=== PATIENT | male | born 1955 | race Caucasian/White ===

== ENCOUNTER 2016-04-09 21:00 | Inpatient (IN) | payer BC ==
[~2016-04-09] VITALS: Ht 170.2 cm; Wt 93.6 kg
[~2016-04-09 21:00] MED LIST: ASPI1TAB69 PO; ATOR40TA16 PO; CLOP75TA PO; COMMODE 3-IN-11 MIS; FERR325T PO; FURO20TA PO; GETGO ROLLING W1 MI1; HOSP BED1; LISI10TA3 PO; METF500 PO; METO25TA3 PO; PANT40TA3 PO; POTA20TA5 PO; QUADMIS; SENN1TAB PO; TAMS5CAP PO; ULTR50TA5 PO; WHEEMIS3; ZOFR4TAB PO
[2016-04-09 21:13] VITALS: BP 133/87; PULSE 100; PULSE 18; RESP 18; TEMP 99.4; O2SAT 96
[2016-04-09] MEDS ORDERED: VANCOMYCIN INJ 1,400 MG in SODIUM CHLORID 0.9% 500 ML INJ 500 ML IV SCH (22:00)
[2016-04-09 22:20] VITALS: BP 159/82; PULSE 100; RESP 20; O2SAT 97
[2016-04-09 22:36] LABS: AUTOMATED NEUTROPHIL # 7.9 TH/MM3 (1.8-7.7); BASOPHIL # 0.1 TH/MM3 (0-0.2); BASOPHIL % 0.6 % (0.0-2.0); EOSINOPHIL # 0.1 TH/MM3 (0-0.4); EOSINOPHIL % 1.2 % (0.0-4.0); HEMATOCRIT 27.1 % (39.0-51.0); HEMO FLAGS DIFF FINAL; LYMPH % 5.1 % (9.0-44.0); LYMPHOCYTE # 0.5 TH/MM3 (1.0-4.8); MEAN CELL VOLUME 79.1 FL (80.0-100.0); MEAN CORPUSCULAR HEMOGLOBIN 25.4 PG (27.0-34.0); NEUT % 80.1 % (16.0-70.0); PLATELET COUNT 340 TH/MM3 (150-450); RED BLOOD COUNT 3.43 MIL/MM3 (4.50-5.90); WHITE BLOOD COUNT 9.9 TH/MM3 (4.0-11.0)
--- NOTE | 2016-04-09 22:39 | PD ---
HPI Chief Complaint: Skin Problem Time Seen by Provider: 21:38 Travel History International Travel<30 days: No Contact w/Intl Traveler<30days: No Traveled to known affect area: No History of Present Illness HPI Patient is a 60 year old male who presents to ER with c/o of fever/chills and infection to his chest wall incision. Patient reports that he had a CABG 2 as well as an aortic replacement at [facility] in [place] on March 09, 2017. Patient reports that after his cardiac procedures, he suffered a watershed infarct. Reports that ultimately, he was cleared for discharge to acute inpatient rehab and did well. He was discharged on April 06, 2015. Patient reports that since yesterday, he has been feeling weaker than normal. Patient reports that he has been having low-grade fever since yesterday, reports a two-day here temperature of 102.3. Patient did take 1gram of acetaminophen prior to coming to the ER. Reports that he noticed a yellow to greenish thick discharge from his upper chest wall incision. Reports that he did not notice this drainage yesterday. Reports that today, he feels more weak and tired and "I just don't feel good." Patient denies chest pain/sob at this time. No other c/o. PFSH Past Medical History Arthritis: No Asthma: No Anxiety: No Depression: No Heart Rhythm Problems: No Cancer: No Cardiovascular Problems: Yes High Cholesterol: Yes Chemotherapy: No Chest Pain: No Congestive Heart Failure: Yes COPD: No Cerebrovascular Accident: Yes Diabetes: Yes Patient Takes Glucophage: Yes Endocrine: Yes Gastrointestinal Disorders: No GERD: No Glaucoma: No Genitourinary: No Headaches: No Hepatitis: No Hiatal Hernia: No Heparin Induced Thrombocytopen: No Hypertension: Yes Immune Disorder: No Implanted Vascular Access Dvce: No Kidney Stones: No Musculoskeletal: Yes Neurologic: Yes (neuropathy feet) Psychiatric: No Reproductive: No Respiratory: No Integumentary: No Migraines: No Radiation Therapy: No Renal Failure: No Seizures: No Sickle Cell Disease: No Sleep Apnea: No Thyroid Disease: No Ulcer: No Past Surgical History Abdominal Surgery: Yes (colon resection x2) AICD: No Arteriovenous Shunt: No Body Medical Devices: Downing catheter 14Fr in place Cardiac Surgery: Yes (s/p CABG x 2 & ascending aortic root graft/replacement) Ear Surgery: No Endocrine Surgery: No Eye Surgery: No Genitourinary Surgery: No Gynecologic Surgery: No Insulin Pump: No Joint Replacement: No Neurologic Surgery: No Oral Surgery: Yes (root canal) Pacemaker: No Thoracic Surgery: No Other Surgery: Yes (cardiac) Social History Alcohol Use: Yes (EVERY OTHER DAY PER PT) Tobacco Use: No Substance Use: No Allergies-Medications (Allergen,Severity, Reaction): Coded Allergies: No Known Allergies (Unverified , 11/15/15) Reported Meds & Prescriptions Reported Meds & Active Scripts Active Ultram (Tramadol HCl) 50 Mg Tab 50 Mg PO Q8HR PRN Glucophage (Metformin HCl) 500 Mg Tab 500 Mg PO TIDPC Lisinopril 10 Mg Tab 10 Mg PO DAILY Furosemide 20 Mg Tab 20 Mg PO DAILY Potassium Chloride Microencaps 20 Meq Tab 10 Meq PO DAILY Senna Plus 8.6-50 mg (Sennosides-Docusate Sodium) 1 Tab Tab 1 Tab PO BID Flomax (Tamsulosin HCl) 0.4 Mg Cap 0.8 Mg PO HS Pantoprazole (Pantoprazole Sodium) 40 Mg Tab 40 Mg PO DAILY Metoprolol Tartrate 25 Mg Tab 25 Mg PO BID Ferrous Sulfate 325 Mg Tab 325 Mg PO BID Clopidogrel (Clopidogrel Bisulfate) 75 Mg Tab 75 Mg PO DAILY Atorvastatin (Atorvastatin Calcium) 40 Mg Tab 40 Mg PO HS Aspirin 81 Mg Tabdr 81 Mg PO DAILY Walker Rolling/GetGo (Device) 1 Mis Mis 1 Ea .ROUTE DIRECTED Commode 3-in-1 (Device) 1 Mis Mis 1 Ea .ROUTE DIRECTED Quad Cane/Large Base/Orth (Misc. Devices) 1 Mis Mis Each Hospital Bed - Electric 1 Ea Ea 1 Ea .ROUTE DIRECTED Wheelchair (Device) 1 Mis Mis 1 Ea .ROUTE DIRECTED Review of Systems General / Constitutional: Positive: Fever, Chills Eyes: No: Visual changes HENT: No: Headaches Cardiovascular: No: Chest Pain or Discomfort Respiratory: No: Shortness of Breath Gastrointestinal: No: Abdominal Pain Genitourinary: No: Dysuria Musculoskeletal: No: Pain Skin: Positive Other (discharge and drainage from chest wall wound), No Rash Neurologic: No: Weakness Psychiatric: No: Depression Endocrine: No: Polydipsia Hematologic/Lymphatic: No: Easy Bruising Physical Exam Narrative GENERAL: nontoxic SKIN: pt with chest wall incision: anterior incision site with thick green to yellow drainage with no obvious abscess, incision to lower chest wall as well as abdomen with no signs of infection/drainage or redness or erythema HEAD: Atraumatic. Normocephalic. EYES: Pupils equal and round. No scleral icterus. No injection or drainage. ENT: No nasal bleeding or discharge. Mucous membranes pink and moist. NECK: Trachea midline. No JVD. CARDIOVASCULAR: Regular rate and rhythm.3/6 systolic murmur RESPIRATORY: No accessory muscle use. Clear to auscultation. Breath sounds equal bilaterally. GASTROINTESTINAL: Abdomen soft, non-tender, nondistended. Hepatic and splenic margins not palpable. MUSCULOSKELETAL: No obvious deformities. No clubbing. No cyanosis. No edema. NEUROLOGICAL: Awake and alert. No obvious cranial nerve deficits. Motor grossly within normal limits. Normal speech. PSYCHIATRIC: Appropriate mood and affect; insight and judgment normal. Data Data Last Documented VS Vital Signs Date Time Temp Pulse Resp B/P Pulse Ox O2 Delivery O2 Flow Rate FiO2 04/09/16 21:13 99.4 100 18 133/87 96 Orders Complete Blood Count With Diff (04/09/16 21:59) Comprehensive Metabolic Panel (04/09/16 21:59) Prothrombin Time / Inr (Pt) (04/09/16 21:59) Act Partial Throm Time (Ptt) (04/09/16 21:59) Lactic Acid Sepsis Protocol (04/09/16 21:59) Blood Culture (04/09/16 21:59) Vancomycin Inj (Vancomycin Inj) (04/09/16 22:00) Iv Access Insert/Monitor (04/09/16 21:59) Ecg Monitoring (04/09/16 21:59) Sodium Chloride 0.9% Flush (Ns Flush) (04/09/16 22:00) Ct Thorax/ Chest W Iv Contrast (04/09/16 22:04) Electrocardiogram (04/09/16 22:46) Iohexol 350 Inj (Omnipaque 350 Inj) (04/09/16 23:20) Admit Order (Ed Use Only) (04/09/16 23:45) Place In Observation (04/09/16 ) Vital Signs (Adult) Q4H (04/09/16 23:46) Neuro Checks Q4H (04/09/16 23:46) Activity Oob With Assistance (04/09/16 23:46) Labs Laboratory Tests Test 04/09/16 04/09/16 22:00 23:00 White Blood Count 9.9 TH/MM3 Red Blood Count 3.43 MIL/MM3 Hemoglobin 8.7 GM/DL Hematocrit 27.1 % Mean Corpuscular Volume 79.1 FL Mean Corpuscular Hemoglobin 25.4 PG Mean Corpuscular Hemoglobin 32.0 % Concent Red Cell Distribution Width 16.0 % Platelet Count 340 TH/MM3 Mean Platelet Volume 7.6 FL Neutrophils (%) (Auto) 80.1 % Lymphocytes (%) (Auto) 5.1 % Monocytes (%) (Auto) 13.0 % Eosinophils (%) (Auto) 1.2 % Basophils (%) (Auto) 0.6 % Neutrophils # (Auto) 7.9 TH/MM3 Lymphocytes # (Auto) 0.5 TH/MM3 Monocytes # (Auto) 1.3 TH/MM3 Eosinophils # (Auto) 0.1 TH/MM3 Basophils # (Auto) 0.1 TH/MM3 CBC Comment DIFF FINAL Differential Comment Prothrombin Time 13.4 SEC Prothromb Time International 1.2 RATIO Ratio Activated Partial 31.7 SEC Thromboplast Time Sodium Level 134 MEQ/L Potassium Level 4.0 MEQ/L Chloride Level 97 MEQ/L Carbon Dioxide Level 24.7 MEQ/L Anion Gap 12 MEQ/L Blood Urea Nitrogen 17 MG/DL Creatinine 1.10 MG/DL Estimat Glomerular Filtration 68 ML/MIN Rate Random Glucose 182 MG/DL Calcium Level 7.7 MG/DL Total Bilirubin 0.7 MG/DL Aspartate Amino Transf 11 U/L (AST/SGOT) Alanine Aminotransferase 12 U/L (ALT/SGPT) Alkaline Phosphatase 117 U/L Total Protein 7.0 GM/DL Albumin 2.2 GM/DL Lactic Acid Level 2.4 mmol/L [facility] Medical Decision Making Medical Screen Exam Complete: Yes Emergency Medical Condition: Yes Interpretation(s) EKG at 2246: NSR at 94bpm, qt/qtc: 368/427, lvh, pt with st depression II, III, aVF, V4-V6 Vital Signs Date Time Temp Pulse Resp B/P Pulse Ox O2 Delivery O2 Flow Rate FiO2 04/09/16 21:13 99.4 100 18 133/87 96 Differential Diagnosis post op chest wall infection/cellulitis/abscess Narrative Course Patient is a 60-year-old male who presents to emergency room for evaluation of infection to his chest wall incision site. Patient is S/P CABG x 2 and aortic root replacement on March 09, 2016. Pt with fever/chills since yesterday with drainage from upper incision site. Pt has been pancultured, ct ordered for eval of possible abscess. Pt given dose of vanco. Patient will require admission wbc: 9.9 hgb: 8.7 hct: 27.1 platelets: 340 neutrophil % 80.1 lactic acid: 2.4 Sodium 134 Chloride 97 BUN 17 Creatinine 1.10 Carbon dioxide 24.7 Potassium 4.0 INR 1.[address] Medina who accepts pt to service, request that admission be placed under name of Dr Pereira Diagnosis Primary Impression: Dehiscence of closure of sternum or sternotomy Qualified Code: T81.32XA - Dehiscence of closure of sternum or sternotomy, initial encounter Additional Impressions: Postoperative infection of wound of sternum Qualified Code: T81.4XXA - Postoperative infection of wound of sternum, initial encounter Pneumonia Qualified Code: J18.1 - Pneumonia of left lower lobe due to infectious organism Admitting Information Admitting Physician Requests: Observation Rosario Christine DO Apr 09, 2016 22:39
[2016-04-09 22:44] LABS: CHLORIDE 97 MEQ/L (98-107); SODIUM (NA) 134 MEQ/L (136-145)
[2016-04-09 22:48] LABS: ANION GAP 12 MEQ/L (5-15); BICARBONATE 24.7 MEQ/L (21.0-32.0); BLOOD UREA NITROGEN 17 MG/DL (7-18)
[2016-04-09 22:51] LABS: ALT (GPT) 12 U/L (12-78); APTT (PATIENT) 31.7 SEC (24.3-30.1); AST (GOT) 11 U/L (15-37); GLOMERULAR FILTRATION RATE 68 ML/MIN (>89); INTERNATIONAL NORMALIZED RATIO 1.2 RATIO; PROTHROMBIN TIME - PATIENT 13.4 SEC (9.8-11.6)
[2016-04-09 22:53] LABS: TOTAL BILIRUBIN ADULT 0.7 MG/DL (0.2-1.0)
[2016-04-09 22:54] LABS: ALKALINE PHOSPHATASE 117 U/L (45-117)
[2016-04-09] MEDS: METFORMIN HOLD POST IV CONTRAST XX SCH (23:08)
[2016-04-09] MEDS ORDERED: IOHEXOL 350 MG/ML 10 ML VIAL (for RAD DIAG) IV ONE (23:20)
[2016-04-09 23:30] VITALS: BP 165/84; PULSE 95; PULSE 96; RESP 20; TEMP 98.1; O2SAT 96
--- NOTE | 2016-04-09 23:48 | RADHPO ---
EXAM DATE/TIME: 04/09/2016 23:03 [facility] COMPARISON: No previous studies available for comparison. INDICATIONS : Status post surgery one month. Pain and swelling of suture site with fever. IV CONTRAST: 80 cc Omnipaque 350 (iohexol) IV RADIATION DOSE: 20.73 CTDIvol (mGy) MEDICAL HISTORY : Diabetes mellitus type 2. Stroke Congestive heart failure.Hypertension. SURGICAL HISTORY : CABG Ascending aortic roof graft/repair. ENCOUNTER: Initial ACUITY: 1 day PAIN SCALE: 2/10 LOCATION: medial chest TECHNIQUE: Volumetric scanning of the chest was performed. Using automated exposure control and adjustment of t he mA and/or kV according to patient size, radiation dose was kept as low as reasonably achievable to obtain optimal diagnostic quality images. FINDINGS: There is left lower lobe atelectasis versus pneumonia. A moderate size left sided effusion is present . A small right sided effusion is present. There is a 3 mm nodule in the right middle lobe. Examination of the mediastinum demonstrates no abnormally enlarged lymph nodes by CT criteria. No axi llary or hilar abnormalities are identified. Coronary artery calcifications are present. The visualiz ed upper abdomen demonstrates no abnormality. There is fluid around the aortic root which would still be consisted with postoperative change. The median sternotomy is intactThere is no evidence of absce ss. CONCLUSION: 1. Postsurgical changes as above. 2. Bilateral effusions left greater than right. 3. Left lower lobe atelectasis versus pneumonia. Chin Baker MD on April 09, 2016 at 23:28 Board Certified Radiologist. This report was verified electronically.
[2016-04-09] MEDS: PANTOPRAZOLE SOD 40 MG DELAYED RELEASE TAB PO SCH (23:50)
[2016-04-10] VITALS (8 sets, daily range): BP systolic 125–170; BP diastolic 79–88; PULSE 86–110; RESP 14–20; TEMP 98.3–100.5; O2SAT 96–97
[2016-04-10] MEDS ORDERED: AZITHROMYCIN INJ 500 MG in SODIUM CHLOR 0.9% 250 ML INJ 250 ML IV ONE ×2
[2016-04-10] MEDS ORDERED: PIPERACIL-TAZO 4.5 GM PREMIX 100 ML IV ONE
[2016-04-10] MEDS ORDERED: CEFEPIME INJ 2,000 MG in SODIUM CHLORIDE 0.9% INJ 100 ML IV SCH ×2
[2016-04-10] MEDS: traMADol HCL 50 MG TAB PO PRN ×4 (00:46→19:07)
[2016-04-10 01:00] LABS: LACTIC ACID GHOST NOT REPORTABLE
[2016-04-10] MEDS: SODIUM CHLORIDE 0.9% FLUSH 5 ML FLUSH IVF PRN (03:15)
[2016-04-10] MEDS: CEFEPIME INJ 2,000 MG in SODIUM CHLORIDE 0.9% INJ 100 ML IV SCH ×2 (06:33→18:35)
[2016-04-10] MEDS: METOPROLOL TARTRATE 25 MG TAB PO SCH ×2 (09:29→21:00)
[2016-04-10] MEDS: DOCUSATE SODIUM 50 MG/SENNA 8.6 MG TAB PO SCH ×2 (09:29→21:00)
[2016-04-10] MEDS: CLOPIDOGREL 75 MG TAB PO SCH (09:29)
[2016-04-10] MEDS: FERROUS SULFATE 325 MG (65 MG ELEMENTAL IRON) TAB PO SCH ×2 (09:29→21:00)
[2016-04-10] MEDS: ASPIRIN EC 81 MG TABEC PO SCH (09:29)
[2016-04-10] MEDS: PANTOPRAZOLE SOD 40 MG DELAYED RELEASE TAB PO SCH (09:29)
[2016-04-10] MEDS: POTASSIUM CHLORIDE 10 MEQ CONTROLLED RELEASE TAB PO SCH (09:29)
[2016-04-10] MEDS: LISINOPRIL 10 MG TAB PO SCH (09:29)
[2016-04-10] MEDS: VANCOMYCIN INJ 1,000 MG in SODIUM CHLOR 0.9% 250 ML INJ 250 ML IV SCH ×2 (10:14→23:31)
[2016-04-10] MEDS: ONDANSETRON HCL 4 MG/2 ML VIAL IV PRN (10:19)
--- NOTE | 2016-04-10 14:08 | MH ---
cc: ELEUTERIO RECIO MD DATE OF ADMISSION: 04/09/2016 CHIEF COMPLAINT: Wound infection after coronary artery bypass graft surgery. HISTORY OF PRESENT ILLNESS: This is 60-year-old male with past medical and surgical history significant for hyperlipidemia, congestive heart failure, cerebrovascular accident leading to left-sided weakness which is improved 100% per patient, diabetes mellitus, hypertension, diabetic neuropathy. He has had a colon resection x2 secondary to colonic polyps and a Downing catheter was placed in the past and he had a two-vessel CABG and ascending aorta root graft replacement and also aortic valve replacement per patient report. The patient came to the ER at [facility] complaining of fevers, chills and he also redness on the wound area of the cardiac bypass surgery. The patient claimed that he noticed redness two to three days ago. He had bypass surgery done four weeks ago at [facility] on March 09, 2016. The patient reports that after his cardiac procedure, he suffered a watershed infarct and he was cleared for discharge to acute inpatient rehab and did well. He was discharged on April 06, 2016. The patient reports that since yesterday he has been feeling weak and then having some fevers and chills. He reported a temperature of 102.3. He took 1 gram of acetaminophen prior to coming to the emergency room. He had noticed a yellowish to greenish thick discharge from the upper chest wall incision. Other than that, nothing significant. PAST MEDICAL HISTORY / PAST SURGICAL HISTORY: Past medical-surgical history as dictated above. SOCIAL HISTORY: Denies smoking, drinks socially. Denies any drug abuse. Lives at home. He is . He works in lawn maintenance. FAMILY HISTORY : His family history is significant for brother having coronary artery disease and mother having coronary artery disease. ALLERGIES: NO KNOWN DRUG ALLERGIES. MEDICATIONS: 1. 50 milligrams q. 8 hours PRN pain. 2. Glucophage 500 milligrams p.o. three times a day. 3. Lisinopril 10 milligrams p.o. daily. 4. Furosemide 20 milligrams p.o. daily. 5. Potassium chloride 10 milliequivalents p.o. daily. 6. Senna Plus one p.o. twice a day. 7. Flomax 0.8 milligrams at bedtime. 8. Protonix 40 milligrams p.o. daily. 9. Metoprolol 25 milligrams twice a day. 10. Ferrous sulfate 325 milligrams twice a day. 11. Plavix 75 milligrams p.o. daily. 12. Lipitor 40 milligrams p.o. at bedtime. 13. Aspirin 81 milligrams p.o. daily. REVIEW OF SYSTEMS: Review of systems positive for redness, swelling and pain in the incision site area on the front of the chest midline sternal area and feeling weak and tired and mild fever. All other review of systems are negative. PHYSICAL EXAMINATION: GENERAL: On physical examination, this is a 60-year-old male laying on the bed comfortably not in acute distress. VITAL SIGNS: Temperature 98.9, heart rate 86, respirations 20, blood pressure 144/84, O2 saturation 97% on room air. HEAD, EYES, EARS, NOSE, THROAT: Normocephalic and atraumatic. Extraocular muscles intact. Pupils equal, round and reactive to light and accommodation. Oral mucosa moist. NECK: The neck is supple. No visible thyromegaly or neck mass. Trachea is central. CARDIOVASCULAR: Regular rate and rhythm. RESPIRATORY: Clear to auscultation bilaterally. ABDOMEN: Abdomen soft and nontender. Bowel sounds audible. CHEST: The chest shows a midline redness and infection of the sternal wound area. EXTREMITIES: No cyanosis or clubbing. Full range of motion of all extremities. There is a wound on the left lower extremity from where the venous graft was taken which is mildly erythematous. NEUROLOGIC: Awake, alert and oriented times four. No focal deficits. SKIN: There is an erythematous wound on the anterior midline chest area at the CABG site and also a wound on the left lower extremity with erythema. PSYCHIATRIC: The patient is cooperative. LABS: CBC showed white blood cell count 9.9, hemoglobin 8.7, hematocrit 27.1 low, RBC count 3.43 low, MCV 79.1 low, MCH is 25.4 low, basophils 80.1 high, lymphs 5.1 low, monos 13.0 high. Basic metabolic profile totally unremarkable except for a sodium of 134 low, chloride 97 low, GFR 68 low, glucose 182 high, lactic acid 2.4 high and now it is 1.4 today, calcium 7.7 low. Liver function tests are normal. Albumin 2.2 low. PT 13.4. INR 1.2. APTT 31.7. Blood cultures x2 done are negative so far. IMAGING STUDIES: CT chest was done and shows postsurgical changes as above, bilateral effusions, left greater than right, left lower lobe atelectasis versus pneumonia. EKGS: EKG done shows sinus rhythm with a rate of 94, anterolateral S-T-T changes mainly due to hypertrophy or ischemia. Abnormal EKG. Left ventricular hypertrophy. ASSESSMENT AND PLAN: 1. This is a 60-year-old male who came to the emergency room diagnosed with sternal chest wound infection. The patient is on Vancomycin and Cefepime. Infectious disease consulted and further recommendations per infectious disease. Get a wound culture. 2. History of coronary artery disease status post two-vessel bypass surgery. Continue home medications. 3. History of congestive heart failure most likely chronic systolic heart failure. 4. History of diabetes mellitus. ADA 1800 calorie diet. Sliding scale insulin. Check blood sugars. 5. History of stroke in the past leading to left-sided weakness which has resolved. 6. Benign prostate hypertrophy. Continue with Flomax. 7. Hypertension. Continue home medications. 8. Anemia. The patient is on iron. Continue with iron. 9. Sternal wound pain. Continue with Tramadol for pain. 10. DVT prophylaxis. SCDS. 11. GI prophylaxis with Protonix 40 milligrams p.o. daily. We are going to manage the patient on a daily basis and make recommendations on a daily basis. Eleuterio Recio MD EA/PHYLLIS /1:14 PM /1:49 PM LEX
[2016-04-10] MEDS: TAMSULOSIN HCL 0.4 MG CAP PO SCH (21:00)
[2016-04-10] MEDS: ATORVASTATIN 40 MG TAB PO SCH (21:00)
[2016-04-10] MEDS: METFORMIN HOLD POST IV CONTRAST XX SCH (21:09)
[2016-04-11] VITALS: BP 174/91; PULSE 71; RESP 18; TEMP 97.6; O2SAT 97
[2016-04-11 04:00] VITALS: BP 145/78; PULSE 97; RESP 18; TEMP 97.6; O2SAT 95
[2016-04-11] MEDS: CEFEPIME INJ 2,000 MG in SODIUM CHLORIDE 0.9% INJ 100 ML IV SCH ×2 (05:11→17:09)
[2016-04-11 05:14] LABS: AUTOMATED NEUTROPHIL # 5.9 TH/MM3 (1.8-7.7); BASOPHIL # 0.1 TH/MM3 (0-0.2); BASOPHIL % 1.4 % (0.0-2.0); EOSINOPHIL # 0.3 TH/MM3 (0-0.4); HEMO FLAGS DIFF FINAL; LYMPH % 10.2 % (9.0-44.0); LYMPHOCYTE # 0.9 TH/MM3 (1.0-4.8); MEAN CELL VOLUME 77.8 FL (80.0-100.0); MEAN CORPUSCULAR HEMOGLOBIN 25.5 PG (27.0-34.0); MEAN CORPUSCULAR HGB CONC 32.8 % (32.0-36.0); MONO % 15.7 % (0.0-8.0); NEUT % 69.7 % (16.0-70.0); PLATELET COUNT 326 TH/MM3 (150-450); RED BLOOD COUNT 3.22 MIL/MM3 (4.50-5.90); RED CELL DISTRIBUTION WIDTH 16.7 % (11.6-17.2); WHITE BLOOD COUNT 8.4 TH/MM3 (4.0-11.0)
[2016-04-11] MEDS: traMADol HCL 50 MG TAB PO PRN ×3 (05:15→21:51)
[2016-04-11 05:33] LABS: ANION GAP 8 MEQ/L (5-15); AST (GOT) 11 U/L (15-37); BICARBONATE 28.9 MEQ/L (21.0-32.0); BLOOD UREA NITROGEN 9 MG/DL (7-18); CHLORIDE 98 MEQ/L (98-107); GLOMERULAR FILTRATION RATE 99 ML/MIN (>89); POTASSIUM 4.5 MEQ/L (3.5-5.1); SODIUM (NA) 135 MEQ/L (136-145)
[2016-04-11 05:37] LABS: ALKALINE PHOSPHATASE 115 U/L (45-117); ALT (GPT) 12 U/L (12-78); TOTAL BILIRUBIN ADULT 0.6 MG/DL (0.2-1.0)
--- NOTE | 2016-04-11 07:29 | HHI.PR ---
Subjective History of Present Illness Patient feel better cardiovascular surgeon input noted d/w Dr Avalos Infectious disease. d/w and RN at bed side. Review of Systems Constitutional Constitutional: Fatigue Chest/Breast Chest/Breast Remarks surgical wound with redness in sternum. Vitals/Results Intake & Output 04/10/16 04/10/16 04/11/16 15:00 23:00 07:00 Intake Total 450 ml 240 ml 590 ml Output Total 700 ml Balance 450 ml 240 ml -110 ml Intake Oral 450 ml 240 ml 240 ml IV Total 350 ml Output Urine Total 700 ml # Voids 2 1 # Bowel Movements 0 0 Vital Signs Vital Signs Date Time Temp Pulse Resp B/P Pulse Ox O2 Delivery O2 Flow Rate FiO2 04/11/16 04:00 97.6 97 18 145/78 95 04/11/16 00:00 97.6 71 18 174/91 97 04/10/16 20:00 98.6 96 18 170/88 96 04/10/16 16:00 100.5 89 20 143/87 96 04/10/16 14:40 18 04/10/16 12:00 98.9 86 20 144/84 97 04/10/16 08:00 100.1 105 20 125/81 96 CBC/BMP: 04/11/16 0342 04/11/16 0342 Lab Results Laboratory Tests Test 04/11/16 03:42 White Blood Count 8.4 TH/MM3 Red Blood Count 3.22 MIL/MM3 Hemoglobin 8.2 GM/DL Hematocrit 25.0 % Mean Corpuscular Volume 77.8 FL Mean Corpuscular Hemoglobin 25.5 PG Mean Corpuscular Hemoglobin 32.8 % Concent Red Cell Distribution Width 16.7 % Platelet Count 326 TH/MM3 Mean Platelet Volume 7.4 FL Neutrophils (%) (Auto) 69.7 % Lymphocytes (%) (Auto) 10.2 % Monocytes (%) (Auto) 15.7 % Eosinophils (%) (Auto) 3.0 % Basophils (%) (Auto) 1.4 % Neutrophils # (Auto) 5.9 TH/MM3 Lymphocytes # (Auto) 0.9 TH/MM3 Monocytes # (Auto) 1.3 TH/MM3 Eosinophils # (Auto) 0.3 TH/MM3 Basophils # (Auto) 0.1 TH/MM3 CBC Comment DIFF FINAL Differential Comment Sodium Level 135 MEQ/L Potassium Level 4.5 MEQ/L Chloride Level 98 MEQ/L Carbon Dioxide Level 28.9 MEQ/L Anion Gap 8 MEQ/L Blood Urea Nitrogen 9 MG/DL Creatinine 0.79 MG/DL Estimat Glomerular Filtration 99 ML/MIN Rate Random Glucose 105 MG/DL Calcium Level 8.0 MG/DL Total Bilirubin 0.6 MG/DL Aspartate Amino Transf 11 U/L (AST/SGOT) Alanine Aminotransferase 12 U/L (ALT/SGPT) Alkaline Phosphatase 115 U/L Total Protein 6.5 GM/DL Albumin 2.1 GM/DL Microbiology Microbiology 04/10/16 Gram Stain, Received Pending 04/10/16 Wound Culture, Received Pending Physical Exam General General Appearance: Well Developed, Well Nourished, No Acute Distress, Comfortable Eyes Eye Exam: Pupils Equal, Pupils Reactive, Sclera White, Extraocular Movement Intact Throat Throat Exam: Oral Mucosa Carmen & Moist, Oral Pharynx Normal Neck Neck Exam: Neck Supple, Trachea Midline Pulmonary Resp Exam: Clear Bilaterally, Breath Sounds Equal Cardiology CV Exam: Regular, Normal Sinus Rhythm Chest/Breast Chest/Breast Remarks surgical wound with erythema and tenderness at sternum. Gastrointestinal/Abdomen GI Exam: Soft, Non-Tender, Bowel Sounds Present Musculoskeletal MS Exam: Normal Gait, Normal Tone Integumentary Skin Remarks surgical wound with erythema and tenderness at sternum. Neurologic Neuro Exam: Alert, Awake, Oriented, Speech Clear, No Focal Deficits Psychiatric Psych Exam: Appropriate Responses VTE Prophylaxis VTE Prophylaxis Device: SCDs PUD Prophylasis PUD Prophylaxis: Protonix Assessment/Plan Assessment/Plan ASSESSMENT AND PLAN: 1. This is a 60-year-old male who came to the emergency room diagnosed with sternal chest wound infection. The patient is on Vancomycin and Cefepime. Infectious disease input noted d/w ID..edmond and further recommendations per infectious disease. s/p wound culture...CV Surgeon input noted. 2. History of coronary artery disease status post two-vessel bypass surgery. Continue home medications. 3. History of congestive heart failure most likely chronic systolic heart failure. 4. History of diabetes mellitus. ADA 1800 calorie diet. Sliding scale insulin. Check blood sugars. 5. History of stroke in the past leading to left-sided weakness which has resolved. 6. Benign prostate hypertrophy. Continue with Flomax. 7. Hypertension. Continue home medications. 8. Anemia. The patient is on iron. Continue with iron. 9. Sternal wound pain. Continue with Tramadol for pain. 10. DVT prophylaxis. SCDS. 11. GI prophylaxis with Protonix 40 milligrams p.o. daily. We are going to manage the patient on a daily basis and make recommendations on a daily basis. Discussed Condition with: Patient Eleuterio Pereira MD Apr 11, 2016 07:29
[2016-04-11] MEDS: POTASSIUM CHLORIDE 10 MEQ CONTROLLED RELEASE TAB PO SCH (09:12)
[2016-04-11] MEDS: LISINOPRIL 10 MG TAB PO SCH (09:12)
[2016-04-11] MEDS: PANTOPRAZOLE SOD 40 MG DELAYED RELEASE TAB PO SCH (09:12)
[2016-04-11] MEDS: ASPIRIN EC 81 MG TABEC PO SCH (09:12)
[2016-04-11] MEDS: FERROUS SULFATE 325 MG (65 MG ELEMENTAL IRON) TAB PO SCH ×2 (09:12→20:52)
[2016-04-11] MEDS: CLOPIDOGREL 75 MG TAB PO SCH (09:12)
[2016-04-11] MEDS: DOCUSATE SODIUM 50 MG/SENNA 8.6 MG TAB PO SCH ×2 (09:13→20:51)
[2016-04-11] MEDS: METOPROLOL TARTRATE 25 MG TAB PO SCH ×2 (09:13→20:51)
[2016-04-11 10:33] VITALS: BP 152/79; PULSE 85; RESP 17; TEMP 97; O2SAT 95
[2016-04-11] MEDS: VANCOMYCIN INJ 1,000 MG in SODIUM CHLOR 0.9% 250 ML INJ 250 ML IV SCH (11:39)
[2016-04-11 12:00] VITALS: BP 124/71; PULSE 71; RESP 16; TEMP 98.3; O2SAT 95
[2016-04-11 16:00] VITALS: BP 114/69; PULSE 88; RESP 16; TEMP 98.1; O2SAT 96
--- NOTE | 2016-04-11 17:12 | PD.ID.CON ---
History of Present Illness Service ID Consult Requested By Dr Medina Reason for Consult sternal woud infection Primary Care Physician Dimitrios Fletcher MD Diagnoses: History of Present Illness 60 yo male s/p complex crdiac surgery in [facility] incluf=ding 2 vessel CABG asceding aortic root graft and aortic valve resplacement on Mar 09 Sp stroke post -op, with L side hemiplegia which significantly improved in rehab , pt is now walking with walker and is able to move LUE He developped nalise, fever up to 102F, shaking chills and sternal incision drainage 2-3 days ago and presented with those complaints in the hospital His CT did not show fluid collections Pt was seen by CT surgeon Dr Lester who performed b/ds debridement Starnla culture has GPC on G stain Abx were started yday (vanco, cefepime) and today pt feels significantly better and is afebrile BC negative at 2 days Review of Systems Constitutional: COMPLAINS OF: Fatigue, Fever, Chills, Change in appetite, Night Sweats Neurologic: COMPLAINS OF: Abnormal gait, Localized weakness, Poor Balance Other as per history of present illness, the rest of 12 point review is negative Past Family Social History Allergies: Coded Allergies: No Known Allergies (Unverified , 11/15/15) Past Medical History diabetis CAD 2 vessel CABG asceding aortic root graft and aortic valve resplacement on Mar 09 Past Surgical History partical colon resection for polyp (benign) Active Ordered Medications Medications where reviewed in EMR Antibiotics Include: vancomycin cefepime Family History Non-Contributory. Social History No Tobacco. No ETOH. No Illicit Drugs. Physical Exam Vital Signs Vital Signs Date Time Temp Pulse Resp B/P Pulse Ox O2 Delivery O2 Flow Rate FiO2 04/11/16 16:00 98.1 88 16 114/69 96 04/11/16 12:00 98.3 71 16 124/71 95 04/11/16 10:33 97.0 85 17 152/79 95 04/11/16 04:00 97.6 97 18 145/78 95 04/11/16 00:00 97.6 71 18 174/91 97 04/10/16 20:00 98.6 96 18 170/88 96 Physical Exam CONSTITUTIONAL/GENERAL: This is an adequately nourished patient, in no apparent distress. TUBES/LINES/DRAINS: SKIN: No jaundice, rashes, or lesions. Skin temperature appropriate. Not diaphoretic. HEAD: Atraumatic. Normocephalic. EYES: Pupils equal and round and reactive. Extraocular motions intact. No scleral icterus. No injection or drainage. Fundi not examined. ENT: Hearing grossly normal. Nose without bleeding or purulent drainage. oral mucosae without visible erythema, exudates, masses, or lesions. NECK: Trachea midline. Supple, nontender. No palpable thyroid enlargement or nodularity. CARDIOVASCULAR: Regular rate and rhythm without murmurs, gallops, or rubs. No JVD. Peripheral pulses symmetric. Sternal wound covered with dressing with serosang d/c RESPIRATORY/CHEST: Symmetric, unlabored respirations. Clear to auscultation. Breath sounds equal bilaterally. No wheezes, rales, or rhonchi. GASTROINTESTINAL: Abdomen soft, non-tender, nondistended. No hepato-splenomegaly , or palpable masses. No guarding. Bowel sounds present. GENITOURINARY: Without palpable bladder distension. Downing catheter in place. MUSCULOSKELETAL: Extremities without clubbing, cyanosis, 2+ tight edema small icision L lower leg No joint tenderness or effusion noted. No calf tenderness. No mottling or clubbing. LYMPHATICS: No palpable cervical or supraclavicular adenopathy. NEUROLOGICAL: Awake and alert. Motor and sensory grossly within normal limits. Follows commands. speech normal Moves all extremities, minimal residual weakness of L side minimal facial assymetry invoolving L facial mosucles PSYCHIATRIC: No obvious anxiety/depression. no apparent hallucinations or other psychotic thought process. Laboratory Laboratory Tests Test 04/11/16 03:42 White Blood Count 8.4 Red Blood Count 3.22 Hemoglobin 8.2 Hematocrit 25.0 Mean Corpuscular Volume 77.8 Mean Corpuscular Hemoglobin 25.5 Mean Corpuscular Hemoglobin 32.8 Concent Red Cell Distribution Width 16.7 Platelet Count 326 Mean Platelet Volume 7.4 Neutrophils (%) (Auto) 69.7 Lymphocytes (%) (Auto) 10.2 Monocytes (%) (Auto) 15.7 Eosinophils (%) (Auto) 3.0 Basophils (%) (Auto) 1.4 Neutrophils # (Auto) 5.9 Lymphocytes # (Auto) 0.9 Monocytes # (Auto) 1.3 Eosinophils # (Auto) 0.3 Basophils # (Auto) 0.1 CBC Comment DIFF FINAL Differential Comment Sodium Level 135 Potassium Level 4.5 Chloride Level 98 Carbon Dioxide Level 28.9 Anion Gap 8 Blood Urea Nitrogen 9 Creatinine 0.79 Estimat Glomerular Filtration 99 Rate Random Glucose 105 Calcium Level 8.0 Total Bilirubin 0.6 Aspartate Amino Transf 11 (AST/SGOT) Alanine Aminotransferase 12 (ALT/SGPT) Alkaline Phosphatase 115 Total Protein 6.5 Albumin 2.1 Date/Time Procedure Status Source Growth 04/10/16 16:20 Gram Stain - Final Resulted Wound Chest 04/10/16 16:20 Wound Culture - Preliminary Resulted Staphylococcus Aureus 04/09/16 22:30 Aerobic Blood Culture - Preliminary Resulted Blood Peripheral NO GROWTH IN 2 DAYS 04/09/16 22:30 Anaerobic Blood Culture - Preliminary Resulted Blood Peripheral NO GROWTH IN 2 DAYS Result Diagram: 04/11/16 0342 04/11/16 0342 Imaging Last Impressions Chest CT 04/09/162203 Signed Impressions: Service Date/Time: Saturday, April 09, 2016 23:03 - CONCLUSION: 1. Postsurgical changes as above. 2. Bilateral effusions left greater than right. 3. Left lower lobe atelectasis versus pneumonia. Chin Baker MD Course sp b/s debridement today with dressing placement Assessment and Plan Assessment and Plan sp 2 vessel CABG asceding aortic root graft and aortic valve resplacement on Mar 09 Sternal wound infx, MSSA fever chills, lactic acidosis -re solved w abx REC's: - fu wound clx utill finl - start cefazolin - dc cefepime - dc vancomycin if MSSA confirmed by microscan fu blood clx untill final Luisana Avalos MD Apr 11, 2016 17:11
[2016-04-11] MEDS: ceFAZolin 2 GM PREMIX 50 ML IV SCH (18:02)
--- NOTE | 2016-04-11 19:50 | EKG ---
Date Performed: 04/09/2016 Time Performed: 22:46:42 PTAGE: 60 years EKG: Sinus rhythm Left ventricular hypertrophy Inferior/lateral ST-T changes may be due to hypertrophy and/or ischemia Abnormal ECG PREVIOUS TRACING : 12/28/2015 11.29 DOCTOR: Kai Li Interpretating Date/Time 04/11/2016 19:41:28
[2016-04-11 20:18] VITALS: BP 143/75; PULSE 92; RESP 18; TEMP 98.4; O2SAT 96
[2016-04-11] MEDS: ATORVASTATIN 40 MG TAB PO SCH (20:51)
[2016-04-11] MEDS: TAMSULOSIN HCL 0.4 MG CAP PO SCH (20:52)
[2016-04-12 00:09] VITALS: BP 117/70; PULSE 90; RESP 18; TEMP 97.2; O2SAT 98
[2016-04-12] MEDS: VANCOMYCIN INJ 1,000 MG in SODIUM CHLOR 0.9% 250 ML INJ 250 ML IV SCH ×2 (00:30→11:57)
[2016-04-12 00:35] LABS: ALT (GPT) 16 U/L (12-78); ANION GAP 11 MEQ/L (5-15); AST (GOT) 16 U/L (15-37); BICARBONATE 25.5 MEQ/L (21.0-32.0); BLOOD UREA NITROGEN 13 MG/DL (7-18); CHLORIDE 99 MEQ/L (98-107); GLOMERULAR FILTRATION RATE 88 ML/MIN (>89); POTASSIUM 3.9 MEQ/L (3.5-5.1); SODIUM (NA) 135 MEQ/L (136-145)
[2016-04-12 00:37] LABS: ALKALINE PHOSPHATASE 108 U/L (45-117); TOTAL BILIRUBIN ADULT 0.4 MG/DL (0.2-1.0)
[2016-04-12] MEDS: ceFAZolin 2 GM PREMIX 50 ML IV SCH ×3 (02:12→17:12)
[2016-04-12 04:11] LABS: AUTOMATED NEUTROPHIL # 4.6 TH/MM3 (1.8-7.7); BASOPHIL # 0.1 TH/MM3 (0-0.2); BASOPHIL % 1.4 % (0.0-2.0); EOSINOPHIL # 0.3 TH/MM3 (0-0.4); EOSINOPHIL % 4.1 % (0.0-4.0); HEMATOCRIT 23.7 % (39.0-51.0); HEMO FLAGS DIFF FINAL; LYMPH % 11.9 % (9.0-44.0); LYMPHOCYTE # 0.8 TH/MM3 (1.0-4.8); MEAN CELL VOLUME 77.7 FL (80.0-100.0); MEAN CORPUSCULAR HEMOGLOBIN 26.1 PG (27.0-34.0); MEAN CORPUSCULAR HGB CONC 33.5 % (32.0-36.0); MONO % 16.8 % (0.0-8.0); NEUT % 65.8 % (16.0-70.0); PLATELET COUNT 298 TH/MM3 (150-450); RED BLOOD COUNT 3.05 MIL/MM3 (4.50-5.90); RED CELL DISTRIBUTION WIDTH 16.8 % (11.6-17.2); WHITE BLOOD COUNT 7.1 TH/MM3 (4.0-11.0)
[2016-04-12 08:00] VITALS: BP 166/85; PULSE 88; RESP 16; TEMP 98; O2SAT 98
--- NOTE | 2016-04-12 08:17 | MB ---
cc: YOSEF HATCH MD DATE OF CONSULTATION 04/11/2016 HISTORY OF THE PRESENT ILLNESS This is a 60-year-old male who has history of coronary artery disease recently underwent coronary artery bypass grafting x2, ascending aortic root graft replacement, aortic valve replacement tissue valve. Per the patient apparently he was in rehab recently and then went home. He also apparently suffered a watershed infarct and has basically regained all of his strength on his left side. He noticed apparently at home and his daughter, he was feeling weak, started having some fevers and chills. Reported a temperature of 102.3, took some Tylenol. He also noticed some yellowish to greenish thick discharge coming from the upper portion of his chest incision. He was admitted for sternal wound infection. He underwent CT of the chest which did not show any evidence of abscess or bony abnormality. However, upon examination per Dr. Yosef Hatch and myself after debriding the incision, he did have some moderate amount of thick, purulent, yellowish-greenish discharge. The wound was then cleaned and sterilized with some Betadine and a Prevena dressing was applied per our OR crew. He is to keep this in place for at least 7 days with reevaluation of the wound at that time. He apparently has an outpatient visit tomorrow more with Dr. Pavel Oliver at [facility]. Dr. Hatch will be contacting him regarding this patient's admission. PAST MEDICAL HISTORY 1. Aortic valve disease. 2. Coronary artery disease. 3. Hypertension. 4. Diabetic neuropathy. 5. Diabetes mellitus. PAST SURGICAL HISTORY Other surgery includes: 1. Colon resections x2, colonic polyps. 2. Status post coronary artery bypass grafting x2. 3. Ascending aortic root graft replacement, aortic tissue valve on March 09, 2016. ALLERGIES NO KNOWN ALLERGIES. MEDICATIONS Home medications include: 1. Glucophage 500 p.o. t.i.d. 2. Lisinopril 10 p.o. daily. 3. Lasix 20 daily. 4. Potassium 10 p.o. daily. 5. Senna Plus one p.o. b.i.d. 6. Flomax 0.8 at bedtime. 7. Protonix 40 p.o. daily. 8. Metoprolol 25 p.o. b.i.d. 9. Ferrous sulfate 325 mg b.i.d. 10. Plavix 75 daily. 11. Lipitor 40 p.o. q.h.s. 12. Aspirin 81 daily. FAMILY HISTORY Significant for brother having coronary artery disease and mother had coronary artery disease also. SOCIAL HISTORY No tobacco or alcohol. Lives at home with his . Works in lawn maintenance REVIEW OF SYSTEMS As above. Positive for redness and swelling and pain at the incision site on his sternum. Also feeling weak, tired and fatigued and fever at home. PHYSICAL EXAMINATION GENERAL: This is a 60-year-old male in no acute distress. VITAL SIGNS: Temperature currently 98.9, heart rate of 80, respiratory rate of 20, blood pressure 140/80. O2 saturation 97% on room air. HEENT: Head is normocephalic, atraumatic. Pupils not injected. No icterus. NECK: Supple. No JVD. CARDIOVASCULAR: Heart sounds S1-S2, regular rate and rhythm. No audible rub or gallop. LUNGS: Diminished in the bases. A few crackles on the left lower base. ABDOMEN: Soft, nontender. EXTREMITIES: Reveal no cyanosis, clubbing or edema. CHEST: Sternal wound is as above. It is intact and well approximated. It was opened approximately 1 cm for drainage and then again the Prevena was applied to the patient. ASSESSMENT/PLAN This is a 60-year-old status post coronary artery bypass graft x2, aortic root graft and aortic tissue valve replacement March 09 at [facility] by Dr. Pavel Oliver. At this time agree with antibiotic therapy. Recommend that the patient be evaluated for a PICC line outpatient therapy. He could be discharged at any time and he can follow up in the office in one week and/or he follows up at [facility] with Dr. Pavel Oliver. Continued IV antibiotics. The Prevena can stay on for seven days and be evaluated for replacement at that time. DICTATED BY: KAY Woodruff Yosef MCDOWELL /12:16 PM /8:18 AM
[2016-04-12] MEDS: ASPIRIN EC 81 MG TABEC PO SCH (08:31)
[2016-04-12] MEDS: CLOPIDOGREL 75 MG TAB PO SCH (08:31)
[2016-04-12] MEDS: PANTOPRAZOLE SOD 40 MG DELAYED RELEASE TAB PO SCH (08:31)
[2016-04-12] MEDS: DOCUSATE SODIUM 50 MG/SENNA 8.6 MG TAB PO SCH ×2 (08:31→21:14)
[2016-04-12] MEDS: METOPROLOL TARTRATE 25 MG TAB PO SCH ×2 (08:32→21:14)
[2016-04-12] MEDS: LISINOPRIL 10 MG TAB PO SCH (08:32)
[2016-04-12] MEDS: FERROUS SULFATE 325 MG (65 MG ELEMENTAL IRON) TAB PO SCH ×2 (08:32→21:14)
[2016-04-12] MEDS: POTASSIUM CHLORIDE 10 MEQ CONTROLLED RELEASE TAB PO SCH (08:32)
--- NOTE | 2016-04-12 09:06 | PD.CAR.PN ---
CVT Progress Note Objective: Vital Signs Date Time Temp Pulse Resp B/P Pulse Ox O2 Delivery O2 Flow Rate FiO2 04/12/16 08:00 98.0 88 16 166/85 98 04/12/16 00:17 18 04/12/16 00:09 97.2 90 18 117/70 98 04/11/16 20:18 98.4 92 18 143/75 96 04/11/16 16:00 98.1 88 16 114/69 96 04/11/16 12:00 98.3 71 16 124/71 95 04/11/16 10:33 97.0 85 17 152/79 95 Result Diagram: 04/12/16 0327 04/11/16 9138 Plan: Wound assessed yesterday. Dry scab over the superior aspect of the sternal incision with pinpoint area of purulent drainage from the inferior manubrial area. Following betadine prep, the wound was sharply debrided and expressed with purulent drainage evacuated. The incision undermines for a segment of 2.5 cm. This was opened and more pus drained. No evidence of deep infection or fluid collections by gross examination and exploration as well as by CT of the chest. The wound was painted with betadine again and a Pravena suction dressing applied. Will leave dressing in place for 5-7 days. If the drainage persists, then he will likely require exploration and wound vac placement. Sky Lester MD Apr 12, 2016 09:06
[2016-04-12] MEDS: metFORMIN HCL 500 MG TAB PO SCH ×3 (10:31→17:12)
--- NOTE | 2016-04-12 11:12 | PD.CAR.PN ---
CVT Progress Note Subjective/Hospital Course: pt has prevena dressing to chest no fever, + staph in chest wound will re-eval fri continue IV antibiotics/ Dr Lester has been in contact with Dr Benito AU at [place] / [facility] Objective: Vital Signs Date Time Temp Pulse Resp B/P Pulse Ox O2 Delivery O2 Flow Rate FiO2 04/12/16 08:00 98.0 88 16 166/85 98 04/12/16 00:17 18 04/12/16 00:09 97.2 90 18 117/70 98 04/11/16 20:18 98.4 92 18 143/75 96 04/11/16 16:00 98.1 88 16 114/69 96 04/11/16 12:00 98.3 71 16 124/71 95 Labs: Laboratory Tests Test 04/11/16 04/12/16 23:28 03:27 Sodium Level 135 MEQ/L (136-145) Potassium Level 3.9 MEQ/L (3.5-5.1) Chloride Level 99 MEQ/L (98-107) Carbon Dioxide Level 25.5 MEQ/L (21.0-32.0) Anion Gap 11 MEQ/L (5-15) Blood Urea Nitrogen 13 MG/DL (7-18) Creatinine 0.88 MG/DL (0.60-1.30) Estimat Glomerular Filtration 88 ML/MIN (>89) Rate Random Glucose 161 MG/DL (74-106) Calcium Level 7.5 MG/DL (8.5-10.1) Total Bilirubin 0.4 MG/DL (0.2-1.0) Aspartate Amino Transf 16 U/L (15-37) (AST/SGOT) Alanine Aminotransferase 16 U/L (12-78) (ALT/SGPT) Alkaline Phosphatase 108 U/L (45-117) Total Protein 6.2 GM/DL (6.4-8.2) Albumin 2.0 GM/DL (3.4-5.0) White Blood Count 7.1 TH/MM3 (4.0-11.0) Red Blood Count 3.05 MIL/MM3 (4.50-5.90) Hemoglobin 7.9 GM/DL (13.0-17.0) Hematocrit 23.7 % (39.0-51.0) Mean Corpuscular Volume 77.7 FL (80.0-100.0) Mean Corpuscular Hemoglobin 26.1 PG (27.0-34.0) Mean Corpuscular Hemoglobin 33.5 % Concent (32.0-36.0) Red Cell Distribution Width 16.8 % (11.6-17.2) Platelet Count 298 TH/MM3 (150-450) Mean Platelet Volume 7.3 FL (7.0-11.0) Neutrophils (%) (Auto) 65.8 % (16.0-70.0) Lymphocytes (%) (Auto) 11.9 % (9.0-44.0) Monocytes (%) (Auto) 16.8 % (0.0-8.0) Eosinophils (%) (Auto) 4.1 % (0.0-4.0) Basophils (%) (Auto) 1.4 % (0.0-2.0) Neutrophils # (Auto) 4.6 TH/MM3 (1.8-7.7) Lymphocytes # (Auto) 0.8 TH/MM3 (1.0-4.8) Monocytes # (Auto) 1.2 TH/MM3 (0-0.9) Eosinophils # (Auto) 0.3 TH/MM3 (0-0.4) Basophils # (Auto) 0.1 TH/MM3 (0-0.2) CBC Comment DIFF FINAL Differential Comment Result Diagram: 04/12/16 0327 04/11/16 2328 Viky Feliz Apr 12, 2016 11:12
--- NOTE | 2016-04-12 11:38 | HHI.PR ---
Subjective History of Present Illness Patient feel better cardiovascular surgeon input noted s/p sternal wound debridment. d/w Dr Avalos Infectious disease. d/w and RN at bed side. Review of Systems Constitutional Constitutional: Fatigue Vitals/Results Intake & Output 04/11/16 04/11/16 04/12/16 15:00 23:00 07:00 Intake Total 1220 ml 632 ml 360 ml Output Total 500 ml 400 ml Balance 1220 ml 132 ml -40 ml Intake Oral 960 ml 360 ml 360 ml IV Total 260 ml 272 ml Output Urine Total 500 ml 400 ml # Voids 2 # Bowel Movements 0 Vital Signs Vital Signs Date Time Temp Pulse Resp B/P Pulse Ox O2 Delivery O2 Flow Rate FiO2 04/12/16 08:00 98.0 88 16 166/85 98 04/12/16 00:17 18 04/12/16 00:09 97.2 90 18 117/70 98 04/11/16 20:18 98.4 92 18 143/75 96 04/11/16 16:00 98.1 88 16 114/69 96 04/11/16 12:00 98.3 71 16 124/71 95 CBC/BMP: 04/12/16 0327 04/11/16 2328 Lab Results Laboratory Tests Test 04/11/16 04/12/16 23:28 03:27 Sodium Level 135 MEQ/L Potassium Level 3.9 MEQ/L Chloride Level 99 MEQ/L Carbon Dioxide Level 25.5 MEQ/L Anion Gap 11 MEQ/L Blood Urea Nitrogen 13 MG/DL Creatinine 0.88 MG/DL Estimat Glomerular Filtration 88 ML/MIN Rate Random Glucose 161 MG/DL Calcium Level 7.5 MG/DL Total Bilirubin 0.4 MG/DL Aspartate Amino Transf 16 U/L (AST/SGOT) Alanine Aminotransferase 16 U/L (ALT/SGPT) Alkaline Phosphatase 108 U/L Total Protein 6.2 GM/DL Albumin 2.0 GM/DL White Blood Count 7.1 TH/MM3 Red Blood Count 3.05 MIL/MM3 Hemoglobin 7.9 GM/DL Hematocrit 23.7 % Mean Corpuscular Volume 77.7 FL Mean Corpuscular Hemoglobin 26.1 PG Mean Corpuscular Hemoglobin 33.5 % Concent Red Cell Distribution Width 16.8 % Platelet Count 298 TH/MM3 Mean Platelet Volume 7.3 FL Neutrophils (%) (Auto) 65.8 % Lymphocytes (%) (Auto) 11.9 % Monocytes (%) (Auto) 16.8 % Eosinophils (%) (Auto) 4.1 % Basophils (%) (Auto) 1.4 % Neutrophils # (Auto) 4.6 TH/MM3 Lymphocytes # (Auto) 0.8 TH/MM3 Monocytes # (Auto) 1.2 TH/MM3 Eosinophils # (Auto) 0.3 TH/MM3 Basophils # (Auto) 0.1 TH/MM3 CBC Comment DIFF FINAL Differential Comment Physical Exam General General Appearance: Well Developed, Well Nourished, No Acute Distress, Comfortable Eyes Eye Exam: Pupils Equal, Pupils Reactive, Sclera White, Extraocular Movement Intact Throat Throat Exam: Oral Mucosa Mcc[place] & Moist, Oral Pharynx Normal Neck Neck Exam: Neck Supple, Trachea Midline Pulmonary Resp Exam: Clear Bilaterally, Breath Sounds Equal Cardiology CV Exam: Regular, Normal Sinus Rhythm Chest/Breast Chest/Breast Remarks surgical wound with erythema and tenderness at sternum. Gastrointestinal/Abdomen GI Exam: Soft, Non-Tender, Bowel Sounds Present Musculoskeletal MS Exam: Normal Gait, Normal Tone Integumentary Skin Remarks surgical wound with erythema and tenderness at sternum. Neurologic Neuro Exam: Alert, Awake, Oriented, Speech Clear, No Focal Deficits Psychiatric Psych Exam: Appropriate Responses VTE Prophylaxis VTE Prophylaxis Device: SCDs PUD Prophylasis PUD Prophylaxis: Protonix Assessment/Plan Assessment/Plan ASSESSMENT AND PLAN: 1. This is a 60-year-old male who came to the emergency room diagnosed with sternal chest wound infection. The patient is on Vancomycin and Cefepime. Infectious disease input noted d/w ID. further recommendations per infectious disease. s/p wound culture...cardiovascular surgeon input noted s/p sternal wound debridment. 2. History of coronary artery disease status post two-vessel bypass surgery. Continue home medications. 3. History of congestive heart failure most likely chronic systolic heart failure. 4. History of diabetes mellitus. ADA 1800 calorie diet. Sliding scale insulin. Check blood sugars. 5. History of stroke in the past leading to left-sided weakness which has resolved. 6. Benign prostate hypertrophy. Continue with Flomax. 7. Hypertension. Continue home medications. 8. Anemia. The patient is on iron. Continue with iron. 9. Sternal wound pain. Continue with Tramadol for pain. 10. DVT prophylaxis. SCDS. 11. GI prophylaxis with Protonix 40 milligrams p.o. daily. We are going to manage the patient on a daily basis and make recommendations on a daily basis. Discussed Condition with: Patient Eleuterio Pereira MD Apr 12, 2016 11:38
[2016-04-12 12:00] VITALS: BP 105/56; PULSE 86; RESP 17; TEMP 96.3; O2SAT 93
[2016-04-12 16:00] VITALS: BP 165/89; PULSE 69; RESP 16; TEMP 97.2; O2SAT 96
[2016-04-12 20:00] VITALS: BP 141/69; PULSE 101; RESP 20; TEMP 97.9; O2SAT 97
[2016-04-12] MEDS: TAMSULOSIN HCL 0.4 MG CAP PO SCH (21:14)
[2016-04-12] MEDS: ATORVASTATIN 40 MG TAB PO SCH (21:14)
[2016-04-12] MEDS: traMADol HCL 50 MG TAB PO PRN (21:15)
[2016-04-13] VITALS: BP 163/82; PULSE 82; RESP 18; TEMP 97.8; O2SAT 96
[2016-04-13] MEDS: VANCOMYCIN INJ 1,000 MG in SODIUM CHLOR 0.9% 250 ML INJ 250 ML IV SCH ×2 (00:31→15:05)
[2016-04-13] MEDS: ceFAZolin 2 GM PREMIX 50 ML IV SCH ×3 (02:35→17:52)
--- NOTE | 2016-04-13 05:08 | HHI.PR ---
Subjective History of Present Illness Patient feel better cardiovascular surgeon input noted s/p sternal wound debridment. wound Culture Positive for MSSA.. d/w at bed side. Review of Systems Constitutional Constitutional: Fatigue Vitals/Results Intake & Output 04/12/16 04/12/16 04/13/16 15:00 23:00 07:00 Intake Total 1516 ml 530 ml Output Total 400 ml Balance 1516 ml 130 ml Intake Oral 1200 ml 480 ml IV Total 316 ml 50 ml Output Urine Total 400 ml # Voids 2 1 # Bowel Movements 0 Vital Signs Vital Signs Date Time Temp Pulse Resp B/P Pulse Ox O2 Delivery O2 Flow Rate FiO2 04/13/16 00:00 97.8 82 18 163/82 96 04/12/16 23:45 16 04/12/16 20:00 97.9 101 20 141/69 97 04/12/16 16:00 97.2 69 16 165/89 96 04/12/16 12:00 96.3 86 17 105/56 93 04/12/16 08:00 98.0 88 16 166/85 98 CBC/BMP: 04/12/16 0327 04/11/16 2328 Physical Exam General General Appearance: Well Developed, Well Nourished, No Acute Distress, Comfortable Eyes Eye Exam: Pupils Equal, Pupils Reactive, Sclera White, Extraocular Movement Intact Throat Throat Exam: Oral Mucosa Coco & Moist, Oral Pharynx Normal Neck Neck Exam: Neck Supple, Trachea Midline Pulmonary Resp Exam: Clear Bilaterally, Breath Sounds Equal Cardiology CV Exam: Regular, Normal Sinus Rhythm Chest/Breast Chest/Breast Remarks surgical wound with erythema and tenderness at sternum. Gastrointestinal/Abdomen GI Exam: Soft, Non-Tender, Bowel Sounds Present Musculoskeletal MS Exam: Normal Gait, Normal Tone Integumentary Skin Remarks surgical wound with erythema and tenderness at sternum. Neurologic Neuro Exam: Alert, Awake, Oriented, Speech Clear, No Focal Deficits Psychiatric Psych Exam: Appropriate Responses VTE Prophylaxis VTE Prophylaxis Device: SCDs PUD Prophylasis PUD Prophylaxis: Protonix Assessment/Plan Assessment/Plan ASSESSMENT AND PLAN: 1. This is a 60-year-old male who came to the emergency room diagnosed with sternal chest wound infection. The patient is on Vancomycin and Cefepime. Infectious disease input noted d/w ID. further recommendations per infectious disease. s/p wound culture...wound Culture Positive for MSSA.. cardiovascular surgeon input noted s/p sternal wound debridment. 2. History of coronary artery disease status post two-vessel bypass surgery. Continue home medications. 3. History of congestive heart failure most likely chronic systolic heart failure. 4. History of diabetes mellitus. ADA 1800 calorie diet. Sliding scale insulin. Check blood sugars. 5. History of stroke in the past leading to left-sided weakness which has resolved. 6. Benign prostate hypertrophy. Continue with Flomax. 7. Hypertension. Continue home medications. 8. Anemia. The patient is on iron. Continue with iron. 9. Sternal wound pain. Continue with Tramadol for pain. 10. DVT prophylaxis. SCDS. 11. GI prophylaxis with Protonix 40 milligrams p.o. daily. We are going to manage the patient on a daily basis and make recommendations on a daily basis. Check CBC with diff CMP in AM. Discussed Condition with: Patient, Spouse Eleuterio Pereira MD Apr 13, 2016 05:08
[2016-04-13 06:05] LABS: AUTOMATED NEUTROPHIL # 5.3 TH/MM3 (1.8-7.7); BASOPHIL # 0.1 TH/MM3 (0-0.2); BASOPHIL % 1.4 % (0.0-2.0); EOSINOPHIL # 0.2 TH/MM3 (0-0.4); EOSINOPHIL % 3.1 % (0.0-4.0); HEMATOCRIT 25.2 % (39.0-51.0); HEMO FLAGS DIFF FINAL; LYMPH % 10.6 % (9.0-44.0); LYMPHOCYTE # 0.8 TH/MM3 (1.0-4.8); MEAN CELL VOLUME 77.4 FL (80.0-100.0); MEAN CORPUSCULAR HEMOGLOBIN 25.3 PG (27.0-34.0); MEAN CORPUSCULAR HGB CONC 32.6 % (32.0-36.0); MONO % 13.8 % (0.0-8.0); NEUT % 71.1 % (16.0-70.0); PLATELET COUNT 351 TH/MM3 (150-450); RED BLOOD COUNT 3.26 MIL/MM3 (4.50-5.90); RED CELL DISTRIBUTION WIDTH 16.5 % (11.6-17.2); WHITE BLOOD COUNT 7.5 TH/MM3 (4.0-11.0)
[2016-04-13 06:39] LABS: ALKALINE PHOSPHATASE 127 U/L (45-117); ALT (GPT) 13 U/L (12-78); ANION GAP 7 MEQ/L (5-15); AST (GOT) 14 U/L (15-37); BICARBONATE 26.9 MEQ/L (21.0-32.0); BLOOD UREA NITROGEN 9 MG/DL (7-18); CHLORIDE 101 MEQ/L (98-107); GLOMERULAR FILTRATION RATE 91 ML/MIN (>89); POTASSIUM 3.9 MEQ/L (3.5-5.1); SODIUM (NA) 135 MEQ/L (136-145); TOTAL BILIRUBIN ADULT 0.4 MG/DL (0.2-1.0)
[2016-04-13 08:00] VITALS: BP 170/81; PULSE 82; RESP 17; TEMP 97.6; O2SAT 96
[2016-04-13] MEDS: metFORMIN HCL 500 MG TAB PO SCH ×3 (08:36→17:52)
[2016-04-13] MEDS: CLOPIDOGREL 75 MG TAB PO SCH (08:36)
[2016-04-13] MEDS: ASPIRIN EC 81 MG TABEC PO SCH (08:36)
[2016-04-13] MEDS: FERROUS SULFATE 325 MG (65 MG ELEMENTAL IRON) TAB PO SCH ×2 (08:36→21:02)
[2016-04-13] MEDS: PANTOPRAZOLE SOD 40 MG DELAYED RELEASE TAB PO SCH (08:37)
[2016-04-13] MEDS: POTASSIUM CHLORIDE 10 MEQ CONTROLLED RELEASE TAB PO SCH (08:37)
[2016-04-13] MEDS: LISINOPRIL 10 MG TAB PO SCH (08:37)
[2016-04-13] MEDS: METOPROLOL TARTRATE 25 MG TAB PO SCH ×2 (08:37→21:03)
[2016-04-13] MEDS: DOCUSATE SODIUM 50 MG/SENNA 8.6 MG TAB PO SCH ×2 (08:37→21:02)
[2016-04-13] MEDS: SODIUM CHLORIDE 0.9% FLUSH 5 ML FLUSH IVF PRN (08:42)
--- NOTE | 2016-04-13 10:43 | HHI.FF ---
Infusion Therapy Location of Infusion Therapy: Home Health Care IV Infusion Order Patient Information Patient Weight 93.2 kg Diagnosis: Coded Allergies: No Known Allergies (Unverified , 11/15/15) Administer Medication Cefazolin 2 grams IV q 8 hours Start Treatment: Apr 13, 2016 Stop Treatment: May 24, 2016 Additional Information Venous access: PICC Line Additional Instructions [x] Peripheral flush and dressing changes per protocol [x] Implanted port and central casket liner: * Implanted port: 10 ml Normal Saline followed by 5 ml Heparin 100 units/ml Heparin flush after each use and monthly to maintain. [] May leave port accessed during therapy. [] May leave peripheral site accessed for duration of therapy. [x] If patient has SOB or respiratory distress, check oxygen saturation. If less than 90% or clinical signs of respiratory distress, administer oxygen at 2 L/min. via nasal cannula and notify physician. [x] Anaphylaxis/Reaction orders: * Stop infusion. * Keep IV line open with saline flush. * Notify physician. * Monitor vital signs every 15 minutes until symptoms resolve. * Check Oxygen saturation; Oxygen at 2 L/min. via nasal cannula if less than 90% or clinical signs of respiratory distress. * Administer diphenhydramine (Benadryl) 25 mg IV STAT, (unless patient has received as pre-med). May repeat once, if necessary. * Solu-Cortef 250 mg IVP over 30-60 seconds, use 100 mg vials for each dissolution. * Epinephrine (1mg/1 ml) 0.3 mg subcutaneously or IVP now with any signs of respiratory distress. * Check with physician for new additional pre-med orders if patient is re- challenged or re-treated. [x] May remove PICC line when treatment complete, after confirming with Physician. [x] If the patient is admitted to the hospital, the ED, or transferred via [facility] , complete transfer form including medication reconciliation order sheet. Laboratory Tests Weekly Labs: CBC w/diff, Creatinine, LFT's (Hepatic function test) Luisana Avalos MD Apr 13, 2016 10:43
[2016-04-13 12:00] VITALS: BP 135/71; PULSE 82; RESP 16; TEMP 96.7; O2SAT 97
--- NOTE | 2016-04-13 13:49 | HHI.IDPN ---
Subjective Subjective Remarks "I feeling great" Antibiotics cefazoline Past Medical History CAD Allergies: Coded Allergies: No Known Allergies (Unverified , 11/15/15) Objective . Vital Signs Date Time Temp Pulse Resp B/P Pulse Ox O2 Delivery O2 Flow Rate FiO2 04/13/16 12:00 96.7 82 16 135/71 97 04/13/16 08:00 97.6 82 17 170/81 96 04/13/16 04:00 04/13/16 00:00 97.8 82 18 163/82 96 04/12/16 23:45 16 04/12/16 20:00 97.9 101 20 141/69 97 04/12/16 16:00 97.2 69 16 165/89 96 04/12/16 04/12/16 04/13/16 15:00 23:00 07:00 Intake Total 1516 ml 530 ml 330 ml Output Total 400 ml Balance 1516 ml 130 ml 330 ml Intake Oral 1200 ml 480 ml IV Total 316 ml 50 ml 330 ml Output Urine Total 400 ml # Voids 2 1 # Bowel Movements 0 . Laboratory Tests Test 04/12/16 04/13/16 03:27 04:26 White Blood Count 7.1 TH/MM3 7.5 TH/MM3 Red Blood Count 3.05 MIL/MM3 3.26 MIL/MM3 Hemoglobin 7.9 GM/DL 8.2 GM/DL Hematocrit 23.7 % 25.2 % Mean Corpuscular Volume 77.7 FL 77.4 FL Mean Corpuscular Hemoglobin 26.1 PG 25.3 PG Mean Corpuscular Hemoglobin 33.5 % 32.6 % Concent Red Cell Distribution Width 16.8 % 16.5 % Platelet Count 298 TH/MM3 351 TH/MM3 Mean Platelet Volume 7.3 FL 7.3 FL Neutrophils (%) (Auto) 65.8 % 71.1 % Lymphocytes (%) (Auto) 11.9 % 10.6 % Monocytes (%) (Auto) 16.8 % 13.8 % Eosinophils (%) (Auto) 4.1 % 3.1 % Basophils (%) (Auto) 1.4 % 1.4 % Neutrophils # (Auto) 4.6 TH/MM3 5.3 TH/MM3 Lymphocytes # (Auto) 0.8 TH/MM3 0.8 TH/MM3 Monocytes # (Auto) 1.2 TH/MM3 1.0 TH/MM3 Eosinophils # (Auto) 0.3 TH/MM3 0.2 TH/MM3 Basophils # (Auto) 0.1 TH/MM3 0.1 TH/MM3 CBC Comment DIFF FINAL DIFF FINAL Differential Comment Laboratory Tests Test 04/11/16 04/13/16 23:28 04:26 Sodium Level 135 MEQ/L 135 MEQ/L Potassium Level 3.9 MEQ/L 3.9 MEQ/L Chloride Level 99 MEQ/L 101 MEQ/L Carbon Dioxide Level 25.5 MEQ/L 26.9 MEQ/L Anion Gap 11 MEQ/L 7 MEQ/L Blood Urea Nitrogen 13 MG/DL 9 MG/DL Creatinine 0.88 MG/DL 0.85 MG/DL Estimat Glomerular Filtration 88 ML/MIN 91 ML/MIN Rate Random Glucose 161 MG/DL 113 MG/DL Calcium Level 7.5 MG/DL 7.5 MG/DL Total Bilirubin 0.4 MG/DL 0.4 MG/DL Aspartate Amino Transf 16 U/L 14 U/L (AST/SGOT) Alanine Aminotransferase 16 U/L 13 U/L (ALT/SGPT) Alkaline Phosphatase 108 U/L 127 U/L Total Protein 6.2 GM/DL 6.5 GM/DL Albumin 2.0 GM/DL 2.0 GM/DL Microbiology Date/Time Procedure Status Source Growth 04/10/16 16:20 Gram Stain - Final Complete Wound Chest 04/10/16 16:20 Wound Culture - Final Complete Staphylococcus Aureus Imaging Last Impressions Chest CT 04/09/162203 Signed Impressions: Service Date/Time: Saturday, April 09, 2016 23:03 - CONCLUSION: 1. Postsurgical changes as above. 2. Bilateral effusions left greater than right. 3. Left lower lobe atelectasis versus pneumonia. Chin Baker MD Physical Exam CONSTITUTIONAL/GENERAL: This is an adequately nourished patient, in no apparent distress. TUBES/LINES/DRAINS: new PICC in place RUE SKIN: No jaundice, rashes, or lesions. EYES: Extraocular motions intact. No scleral icterus. No injection or drainage. CARDIOVASCULAR: Regular rate and rhythm without murmurs, gallops, or rubs. No JVD. Peripheral pulses symmetric. Sternal wound covered with dressing with serosang d/c RESPIRATORY/CHEST: Symmetric, unlabored respirations. MUSCULOSKELETAL: Extremities without clubbing, cyanosis, 2+ tight edema NEUROLOGICAL: Awake and alert. Motor and sensory grossly within normal limits. Follows commands. speech normal Moves all extremities, minimal residual weakness of L side minimal facial assymetry invoolving L facial mosucles PSYCHIATRIC: calm and cooperative Assessment & Plan Remarks sp 2 vessel CABG asceding aortic root graft and aortic valve resplacement on Mar 09 Sternal wound infx, MSSA fever chills, lactic acidosis -re solved w abx REC's: - cont cefazolin 2 gm q 8 hrs x 6 wks -OPAt form filled out - fu at [facility] OK to dc from ID perspective after OPAT arranged Luisana Avalos MD Apr 13, 2016 13:49
[2016-04-13] MEDS: traMADol HCL 50 MG TAB PO PRN (15:07)
--- NOTE | 2016-04-13 15:07 | RADRPT ---
EXAM DATE/TIME: 04/13/2016 14:26 [facility] COMPARISON: No previous studies available for comparison. INDICATIONS : Post PICC line placement. MEDICAL HISTORY : Diabetes mellitus type 2. Stroke Congestive heart failure.Hypertension. SURGICAL HISTORY : CABG Ascending aortic roof graft/repair. ENCOUNTER: Subsequent ACUITY: 4 - 6 days PAIN SCORE: 0/10 LOCATION: Bilateral chest FINDINGS: The cardiac silhouette is enlarged in transverse diameter. Median sternotomy wires are present. There is left lower lobe atelectasis versus pneumonia. A moderate size left sided effusion is present. A P ICC line is in place via right-sided approach with its tip in the region of the right brachiocephalic vein. CONCLUSION: 1. Line placement region of the right brachiocephalic vein 2. Left lower lobe atelectasis versus pneumonia. Chin Baker MD on April 13, 2016 at 15:03 Board Certified Radiologist. This report was verified electronically.
[2016-04-13 16:00] VITALS: BP_SYST 179; BP_SYST 198; BP_DIAS 83; BP_DIAS 93; PULSE 88; RESP 18; TEMP 97.4; O2SAT 97
--- NOTE | 2016-04-13 17:09 | RADRPT ---
EXAM DATE/TIME: 04/13/2016 16:44 [facility] COMPARISON: CHEST SINGLE AP, April 13, 2016, 14:26. INDICATIONS : PICC line placement. MEDICAL HISTORY : Diabetes mellitus type 2. Stroke. Congestive heart failure. Hypertension. SURGICAL HISTORY : CABG. Ascending aortic roof graft/repair. ENCOUNTER: Subsequent ACUITY: 4 - 6 days PAIN SCORE: 0/10 LOCATION: Bilateral chest FINDINGS: A right PICC line has been placed. The PICC line appears to be in good position. There is no pneumoth orax. The right lung is clear. No evidence of a right sided effusion. There is evidence of a left-faye ed effusion with some atelectasis in the left lower lung. The left upper lung is clear. The heart siz e is enlarged but stable. There is evidence of previous cardiothoracic surgery. CONCLUSION: Right PICC line in place. No pneumothorax. Desmond Moya MD on April 13, 2016 at 17:07 Board Certified Radiologist. This report was verified electronically.
[2016-04-13 20:00] VITALS: BP 141/70; PULSE 105; RESP 18; TEMP 98.6; O2SAT 97
[2016-04-13] MEDS: TAMSULOSIN HCL 0.4 MG CAP PO SCH (21:03)
[2016-04-13] MEDS: ATORVASTATIN 40 MG TAB PO SCH (21:03)
[2016-04-14] VITALS: BP 163/83; PULSE 89; RESP 19; TEMP 99.6; O2SAT 96
[2016-04-14] MEDS: VANCOMYCIN INJ 1,000 MG in SODIUM CHLOR 0.9% 250 ML INJ 250 ML IV SCH ×2 (00:26→12:27)
[2016-04-14] MEDS: ceFAZolin 2 GM PREMIX 50 ML IV SCH ×3 (01:38→17:15)
[2016-04-14 07:35] LABS: AUTOMATED NEUTROPHIL # 6.5 TH/MM3 (1.8-7.7); BASOPHIL # 0.1 TH/MM3 (0-0.2); BASOPHIL % 1.3 % (0.0-2.0); EOSINOPHIL # 0.2 TH/MM3 (0-0.4); EOSINOPHIL % 2.6 % (0.0-4.0); HEMATOCRIT 23.8 % (39.0-51.0); HEMO FLAGS DIFF FINAL; LYMPH % 9.5 % (9.0-44.0); LYMPHOCYTE # 0.8 TH/MM3 (1.0-4.8); MEAN CELL VOLUME 77.8 FL (80.0-100.0); MEAN CORPUSCULAR HEMOGLOBIN 26.4 PG (27.0-34.0); MEAN CORPUSCULAR HGB CONC 33.9 % (32.0-36.0); MONO % 12.8 % (0.0-8.0); NEUT % 73.8 % (16.0-70.0); PLATELET COUNT 378 TH/MM3 (150-450); RED BLOOD COUNT 3.06 MIL/MM3 (4.50-5.90); RED CELL DISTRIBUTION WIDTH 16.7 % (11.6-17.2); WHITE BLOOD COUNT 8.8 TH/MM3 (4.0-11.0)
[2016-04-14 07:52] LABS: ALKALINE PHOSPHATASE 115 U/L (45-117); ALT (GPT) 9 U/L (12-78); ANION GAP 9 MEQ/L (5-15); AST (GOT) 12 U/L (15-37); BICARBONATE 25.9 MEQ/L (21.0-32.0); BLOOD UREA NITROGEN 6 MG/DL (7-18); CHLORIDE 103 MEQ/L (98-107); GLOMERULAR FILTRATION RATE 118 ML/MIN (>89); POTASSIUM 3.6 MEQ/L (3.5-5.1); SODIUM (NA) 138 MEQ/L (136-145); TOTAL BILIRUBIN ADULT 0.4 MG/DL (0.2-1.0)
--- NOTE | 2016-04-14 08:17 | HHI.PR ---
Subjective History of Present Illness Patient feel better cardiovascular surgeon input noted s/p sternal wound debridment. wound Culture Positive for MSSA.. d/w at bed side. ok to DC Home today with [facility]. Review of Systems Constitutional Constitutional: Fatigue Vitals/Results Intake & Output 04/13/16 04/13/16 04/14/16 15:00 23:00 07:00 Intake Total 645 ml 240 ml 540 ml Balance 645 ml 240 ml 540 ml Intake Oral 645 ml 240 ml 240 ml IV Total 0 ml 300 ml # Voids 2 2 2 # Bowel Movements 1 0 0 Vital Signs Vital Signs Date Time Temp Pulse Resp B/P Pulse Ox O2 Delivery O2 Flow Rate FiO2 04/14/16 00:00 99.6 89 19 163/83 96 04/13/16 20:00 98.6 105 18 141/70 97 04/13/16 16:07 16 04/13/16 16:00 97.4 88 18 198/93 97 179/83 04/13/16 12:00 96.7 82 16 135/71 97 CBC/BMP: 04/14/16 0645 04/14/16 0645 Lab Results Laboratory Tests Test 04/14/16 06:45 White Blood Count 8.8 TH/MM3 Red Blood Count 3.06 MIL/MM3 Hemoglobin 8.1 GM/DL Hematocrit 23.8 % Mean Corpuscular Volume 77.8 FL Mean Corpuscular Hemoglobin 26.4 PG Mean Corpuscular Hemoglobin 33.9 % Concent Red Cell Distribution Width 16.7 % Platelet Count 378 TH/MM3 Mean Platelet Volume 7.2 FL Neutrophils (%) (Auto) 73.8 % Lymphocytes (%) (Auto) 9.5 % Monocytes (%) (Auto) 12.8 % Eosinophils (%) (Auto) 2.6 % Basophils (%) (Auto) 1.3 % Neutrophils # (Auto) 6.5 TH/MM3 Lymphocytes # (Auto) 0.8 TH/MM3 Monocytes # (Auto) 1.1 TH/MM3 Eosinophils # (Auto) 0.2 TH/MM3 Basophils # (Auto) 0.1 TH/MM3 CBC Comment DIFF FINAL Differential Comment Sodium Level 138 MEQ/L Potassium Level 3.6 MEQ/L Chloride Level 103 MEQ/L Carbon Dioxide Level 25.9 MEQ/L Anion Gap 9 MEQ/L Blood Urea Nitrogen 6 MG/DL Creatinine 0.68 MG/DL Estimat Glomerular Filtration 118 ML/MIN Rate Random Glucose 113 MG/DL Calcium Level 7.7 MG/DL Total Bilirubin 0.4 MG/DL Aspartate Amino Transf 12 U/L (AST/SGOT) Alanine Aminotransferase 9 U/L (ALT/SGPT) Alkaline Phosphatase 115 U/L Total Protein 6.4 GM/DL Albumin 2.0 GM/DL Physical Exam General General Appearance: Well Developed, Well Nourished, No Acute Distress, Comfortable Eyes Eye Exam: Pupils Equal, Pupils Reactive, Sclera White, Extraocular Movement Intact Throat Throat Exam: Oral Mucosa Cliff & Moist, Oral Pharynx Normal Neck Neck Exam: Neck Supple, Trachea Midline Pulmonary Resp Exam: Clear Bilaterally, Breath Sounds Equal Cardiology CV Exam: Regular, Normal Sinus Rhythm Chest/Breast Chest/Breast Remarks surgical wound with erythema and tenderness at sternum. Gastrointestinal/Abdomen GI Exam: Soft, Non-Tender, Bowel Sounds Present Musculoskeletal MS Exam: Normal Gait, Normal Tone Integumentary Skin Remarks surgical wound with erythema and tenderness at sternum. Neurologic Neuro Exam: Alert, Awake, Oriented, Speech Clear, No Focal Deficits Psychiatric Psych Exam: Appropriate Responses VTE Prophylaxis VTE Prophylaxis Device: SCDs PUD Prophylasis PUD Prophylaxis: Protonix Assessment/Plan Assessment/Plan ASSESSMENT AND PLAN: 1. This is a 60-year-old male who came to the emergency room diagnosed with sternal chest wound infection. The patient is on Vancomycin and Cefepime. Infectious disease input noted d/w ID. further recommendations per infectious disease. s/p wound culture...wound Culture Positive for MSSA.. cardiovascular surgeon input noted s/p sternal wound debridment. 2. History of coronary artery disease status post two-vessel bypass surgery. Continue home medications. 3. History of congestive heart failure most likely chronic systolic heart failure. 4. History of diabetes mellitus. ADA 1800 calorie diet. Sliding scale insulin. Check blood sugars. 5. History of stroke in the past leading to left-sided weakness which has resolved. 6. Benign prostate hypertrophy. Continue with Flomax. 7. Hypertension. Continue home medications. 8. Anemia. The patient is on iron. Continue with iron. 9. Sternal wound pain. Continue with Tramadol for pain. 10. DVT prophylaxis. SCDS. 11. GI prophylaxis with Protonix 40 milligrams p.o. daily. ok to DC Home today with [facility]. f/u with PCP/ CV surgeon 2-3 days. Discussed Condition with: Patient Eeluterio Pereira MD Apr 14, 2016 08:17
[2016-04-14] MEDS: ONDANSETRON HCL 4 MG/2 ML VIAL IV PRN ×2 (08:42→13:50)
[2016-04-14] MEDS: FERROUS SULFATE 325 MG (65 MG ELEMENTAL IRON) TAB PO SCH (08:43)
[2016-04-14] MEDS: DOCUSATE SODIUM 50 MG/SENNA 8.6 MG TAB PO SCH (08:43)
[2016-04-14] MEDS: POTASSIUM CHLORIDE 10 MEQ CONTROLLED RELEASE TAB PO SCH (08:44)
[2016-04-14] MEDS: CLOPIDOGREL 75 MG TAB PO SCH (08:44)
[2016-04-14] MEDS: METOPROLOL TARTRATE 25 MG TAB PO SCH (08:44)
[2016-04-14] MEDS: ASPIRIN EC 81 MG TABEC PO SCH (08:44)
[2016-04-14] MEDS: PANTOPRAZOLE SOD 40 MG DELAYED RELEASE TAB PO SCH (08:44)
[2016-04-14] MEDS: LISINOPRIL 10 MG TAB PO SCH (08:44)
[2016-04-14] MEDS: metFORMIN HCL 500 MG TAB PO SCH ×2 (08:44→13:48)
[2016-04-14 09:11] VITALS: BP 131/73; PULSE 108; RESP 16; TEMP 96.8; O2SAT 95
[2016-04-14 14:01] VITALS: BP 150/81; PULSE 88; RESP 18; TEMP 97; O2SAT 97
--- NOTE | 2016-04-14 14:17 | PD.CAR.PN ---
CVT Progress Note Subjective/Hospital Course: pt has prevena dressing to chest no fever, + staph in chest wound will re-eval fri continue IV antibiotics/ Dr Lester has been in contact with Dr Benito [facility] at [place] [facility] 04/14 wound cultures + MSSA / on ancef, post picc line skin around sternal prevena without erythema, small amount of drainage in beige color in tubing ok to discharge home with prevena / [facility] has f/u appointment on 04/19 3: [address] Pavel Oliver in [facility] Objective: Vital Signs Date Time Temp Pulse Resp B/P Pulse Ox O2 Delivery O2 Flow Rate FiO2 04/14/16 14:01 97.0 88 18 150/81 97 04/14/16 09:11 96.8 108 16 131/73 95 04/14/16 00:00 99.6 89 19 163/83 96 04/13/16 20:00 98.6 105 18 141/70 97 04/13/16 16:07 16 04/13/16 16:00 97.4 88 18 198/93 97 179/83 Labs: Laboratory Tests Test 04/14/16 06:45 White Blood Count 8.8 TH/MM3 (4.0-11.0) Red Blood Count 3.06 MIL/MM3 (4.50-5.90) Hemoglobin 8.1 GM/DL (13.0-17.0) Hematocrit 23.8 % (39.0-51.0) Mean Corpuscular Volume 77.8 FL (80.0-100.0) Mean Corpuscular Hemoglobin 26.4 PG (27.0-34.0) Mean Corpuscular Hemoglobin 33.9 % Concent (32.0-36.0) Red Cell Distribution Width 16.7 % (11.6-17.2) Platelet Count 378 TH/MM3 (150-450) Mean Platelet Volume 7.2 FL (7.0-11.0) Neutrophils (%) (Auto) 73.8 % (16.0-70.0) Lymphocytes (%) (Auto) 9.5 % (9.0-44.0) Monocytes (%) (Auto) 12.8 % (0.0-8.0) Eosinophils (%) (Auto) 2.6 % (0.0-4.0) Basophils (%) (Auto) 1.3 % (0.0-2.0) Neutrophils # (Auto) 6.5 TH/MM3 (1.8-7.7) Lymphocytes # (Auto) 0.8 TH/MM3 (1.0-4.8) Monocytes # (Auto) 1.1 TH/MM3 (0-0.9) Eosinophils # (Auto) 0.2 TH/MM3 (0-0.4) Basophils # (Auto) 0.1 TH/MM3 (0-0.2) CBC Comment DIFF FINAL Differential Comment Sodium Level 138 MEQ/L (136-145) Potassium Level 3.6 MEQ/L (3.5-5.1) Chloride Level 103 MEQ/L (98-107) Carbon Dioxide Level 25.9 MEQ/L (21.0-32.0) Anion Gap 9 MEQ/L (5-15) Blood Urea Nitrogen 6 MG/DL (7-18) Creatinine 0.68 MG/DL (0.60-1.30) Estimat Glomerular Filtration 118 ML/MIN Rate (>89) Random Glucose 113 MG/DL (74-106) Calcium Level 7.7 MG/DL (8.5-10.1) Total Bilirubin 0.4 MG/DL (0.2-1.0) Aspartate Amino Transf 12 U/L (15-37) (AST/SGOT) Alanine Aminotransferase 9 U/L (12-78) (ALT/SGPT) Alkaline Phosphatase 115 U/L (45-117) Total Protein 6.4 GM/DL (6.4-8.2) Albumin 2.0 GM/DL (3.4-5.0) Result Diagram: 04/14/16 0645 04/14/16 0645 Viky Feliz Apr 14, 2016 14:17
--- NOTE | 2016-04-14 15:56 | HHI.FF ---
Face to Face Verification Diagnosis: (1) S/P CABG x 2 (2) Postoperative infection of wound of sternum (3) DM2 (diabetes mellitus, type 2) (4) HTN (hypertension) Home Health Nursing Order: Signs/symptoms of disease process Wound care and dressing changes Instructions: PREVENA Single Use Negative Wound Therapy System Caregiver Instruction Sheet 1. A Prevena dressing system was applied to the chest incision during surgery , to promote wound healing. It works via a suction device (negative pressure wound therapy) to remove low to moderate levels of exudate (drainage) and infectious materials. We recommend that the device stay in place for up to seven days, from day of surgery. 2. Day of Surgery___/ Day of Removal ____04/19/16 3. The dressing should only be removed by a health healthcare sales representative. Please arrange removal of device to coincide with Home Health visit and or with Nursing staff at Rehab 4. If skin reddening or irritation of skin occurs, or excessive drainage, please notify the Cardiovascular Surgeons office at [phone]. 5. Light showering is permissible; however the pump should be disconnected and placed in safe location, where it will not get wet. The dressing should not be exposed to direct spray or submerged in water. No bath tub / shower only. Ensure the end of the tubing attached to the dressing is facing down so that water does not enter the top of the tube. 6. To remove Prevena dressing: press purple button to turn off device / remove the suction. Then disconnect the tubing from the pump. The fixation strips should be stretched away from the skin and the dressing lifted at one corner and peeled back until it has been fully removed. 7. After removal, it is ok to shower daily using liquid dial soap and clean wash cloth, rinse and pat dry, and leave incision open to air dry. For any concerns regarding Prevena dressing, and or wounds, please contact Lorraine Dash, patient navigator at [phone] or notify the Cardiovascular Surgeons office at [phone]. [facility] Cardiothoracic Discharge Instructions 1. Vital Signs: q shift and record/ include SA02 2. Activity: OOB to chair all meals, ambulate in hallway TID and prn, consult PT ( sternal precautions at all times) 3. 02 2L PRN for SA02 <92% 4. Duodnebs q6hrs prn for SOB/ wheezing 5. Incentive spirometry Q1 hr x 10, while awake, also use acapella device hourly whole awake 6. Sternal Breast Bone Precautions: NO pushing or pulling, ( pt must use sternal pillow to support chest with all activities and with coughing ( takes up to 3 months breast bone to heal ) 7. All females to wear sternal bra , launder as needed 8. Daily incision care: ok to shower daily, no tub bath. Wash all incisions with liquid dial soap, clean wash cloth to each site, rinse and pat dry. Observe for any signs of infection, such as drainage which is dark yellow, islas , green or foul smelling. Immediately report to the surgeon any drainage from the chest incision, or legs, and for any abnormal drainage from the chest tube sites. Notify surgeon if any temp >101.5 degrees F. 9. Please see attached forms for additional instructions regarding post Open Heart specialty wound vac dressings. YOLANDA or Hanna f/u appointment with Dr Pavel Oliver at [facility] [phone] on 243:15 pm I have seen patient Gurvinder Noble Jr Oliver on 04/14/16. My clinical findings support the need for the requested home health care services because: Deconditioned w/ increased weakness (prevena wound care ) I certify that my clinical findings support that this patient is homebound because: Post-op weakness Viky Feliz Apr 14, 2016 15:56
[2016-04-14 16:48] VITALS: BP 163/86; PULSE 94; RESP 18; TEMP 98.9; O2SAT 98
--- NOTE | 2016-04-15 08:13 | HHI.FF ---
Face to Face Verification Diagnosis: (1) S/P CABG x 2 Physical Therapy Order: Evaluate and Treat I have seen patient Gurvinder Noble Jr Oliver on 04/15/16. My clinical findings support the need for the requested home health care services because: Deconditioned w/ increased weakness I certify that my clinical findings support that this patient is homebound because: Post-op weakness Viky Feliz Apr 15, 2016 08:13
--- NOTE | 2016-04-20 11:12 | PQ ---
Physician Query Response Document PATIENT: BRIAN LONGO : 1955 ADMIT DATE: 04/12/2016 6:01 PM DISCH DATE: 04/14/2016 6:31 PM RESPONDING PROVIDER #: shayla QUERY TEXT: Debridement Type Based on your medical judgment, can you further clarify the precise nature, depth, extent, and/or met hods of wound debridement utilized in this case, such as: --EXCISIONAL debridement --NON-EXCISIONAL debridement --Other debridement --Other Specify Based on your medical judgment, can you further clarify the specific structures debrided such as: --Skin --Subcutaneous tissue/Fascia --Muscle(specify muscle)____ --Bone(specify bone) --Other Specify If you have any additional questions/comments and/or concerns please call [employer] Hotline [email or web address] [phone] The patient's Clinical Indicators include: Dr. HATCH, your progress note of 04/12/2016 documents debridement. Note does not specify if debridement is excisionan or non-excisional. Note also does not specify tissue debrided. Please review the questions below and answer to the best of your ability. THANK YOU Query created by: Jordon Peace on 04/20/2016 9:43 AM RESPONSE TEXT: The debridement involved sharp removal of scabbed skin and superficial subcutaneous tissue. The depth of debridement was approximately 1-2 mm. Electronically signed by: Sky Hatch MD 04/20/2016 11:08 AM
--- NOTE | 2016-04-23 14:08 | MD ---
cc: ELEUTERIO RECIO MD ADMISSION DATE: 04/12/2016 DISCHARGE DATE: 04/14/2016 Okay to discharge the patient home with home health care CONDITION AT THE TIME OF DISCHARGE: Satisfactory. DISCHARGE ACTIVITY: As tolerated. DISCHARGE DIET: Cardiac diet, diabetic, ADA 1800 calorie diet. ALLERGIES: NO KNOWN DRUG ALLERGIES. DISCHARGE MEDICATIONS: 1. Aspirin 81 milligrams p.o. daily. 2. Lipitor 40 milligrams p.o. daily. 3. Plavix 75 milligrams p.o. daily. 4. Ferrous sulfate 325 milligrams three times a day. 5. Furosemide 20 milligrams p.o. daily. 6. Lisinopril 10 milligrams p.o. daily. 7. Metformin 500 milligrams p.o. three times a day. 8. Metoprolol tartrate 25 milligrams twice a day. 9. Protonix 40 milligrams p.o. daily. 10. Potassium chloride 10 milliequivalents p.o. daily. 11. Sensodyne. 12. Colace sodium one p.o. twice a day. 13. Flomax 0.8 milligrams p.o. at bedtime. 14. Tramadol 50 milligrams p.o. q. 8 hours PRN pain. FOLLOWUP: The patient was advised to followup with primary care physician and cardiothoracic surgery in one week. BRIEF HISTORY: This is a 60-year-old male who came to the emergency room at [facility] with a chest wall infection. The patient is on Vancomycin and cefepime. Infectious disease was seeing the patient. The patient was given empiric antibiotics. The patient's culture grew out MSSA. Cardiovascular was seeing the patient and also did a wound debridement. A wound VAC was placed. The patient's condition improved. The patient also has a history of coronary artery disease status post two-vessel bypass surgery and also aortic valve surgery, history of congestive heart failure, history of diabetes mellitus, history of stroke in the past leading to left-sided weakness which has resolved, history of benign prostate hypertrophy, history of hypertension, history of anemia. HOSPITAL COURSE: This is a 60-year-old male admitted with sternal wound infection after two-vessel bypass surgery and aortic valve surgery. The patient was given Vancomycin and cefepime. The patient's wound culture grew out MSSA. The patient is being discharged home with home health care with IV antibiotics. The patient is discharged in satisfactory condition. Further details in the medical record. Eleuterio Recio MD EA/PHYLLIS /8:44 PM /1:52 PM
== END 2016-04-14 18:31 | disposition home health service (06) | DRG 856 ==
LOC: PHED 21:00 → PHEDA 23:52 → PH3A 04-10 02:26 → N07A 04-10 19:56 → OBSVTOIN 04-12 18:01
PROVIDERS: ADMIT Family Medicine; ATTEND Family Medicine
PROC: 0JD63ZZ Extraction of Chest Subcutaneous Tissue and Fascia, Percutaneous Approach (ICD-10-PCS; principal; 2016-04-11)
DX: T81.4XXA Infection following a procedure, initial encounter (principal); J18.9 Pneumonia, unspecified organism; I50.22 Chronic systolic (congestive) heart failure; E87.2 Acidosis; T81.30XA Disruption of wound, unspecified, initial encounter; G62.9 Polyneuropathy, unspecified; E11.40 Type 2 diabetes mellitus with diabetic neuropathy, unspecified; I10 Essential (primary) hypertension; E78.00 Pure hypercholesterolemia, unspecified; Z95.1 Presence of aortocoronary bypass graft; Y83.8 Other surgical procedures as the cause of abnormal reaction of the patient, or of later complication, without mention of misadventure at the time of the procedure; I25.10 Atherosclerotic heart disease of native coronary artery without angina pectoris; Z86.010 Personal history of colon polyps; Z95.2 Presence of prosthetic heart valve; Z79.84 Long term (current) use of oral hypoglycemic drugs; Z86.73 Personal history of transient ischemic attack (TIA), and cerebral infarction without residual deficits; N40.0 Benign prostatic hyperplasia without lower urinary tract symptoms; D64.9 Anemia, unspecified; B95.61 Methicillin susceptible Staphylococcus aureus infection as the cause of diseases classified elsewhere; E78.5 Hyperlipidemia, unspecified
CPT/HCPCS: 36569; 71010; 71260; 76937; 80053; 82948; 83605; 85025; 85610; 85730; 86403; 87040; 87070; 87077; 87147; 87186; 87205; 93005; 96365; C1751; G0378; J0456; J0690; J0692; J2405; J2543; J3370; J7040; J7050; Q9967